=== PATIENT | male | born 1955 | race Caucasian/White ===

== ENCOUNTER 2018-06-04 06:43 | Day surgery (SDC) | payer BC ==
[2018-06-04] MEDS ORDERED: FENTAnyl 50 MCG/ML VIAL (09:30)
[2018-06-04] MEDS ORDERED: MIDAZOLAM 1 MG/ML 2 ML INJ ×2 (09:30)
== END 2018-06-04 11:27 | disposition home or self-care (01) ==
LOC: GIL 06:43
DX: Z12.11 Encounter for screening for malignant neoplasm of colon (principal); K29.30 Chronic superficial gastritis without bleeding; K64.8 Other hemorrhoids; K21.9 Gastro-esophageal reflux disease without esophagitis
CPT/HCPCS: 43239

== ENCOUNTER 2018-12-12 15:48 | Emergency (ER) | payer BC | END 2018-12-12 16:54 | disposition home or self-care (01) | LOC: FTE 15:48 | DX: H11.31 Conjunctival hemorrhage, right eye (principal) | CPT/HCPCS: 99282 ==